=== PATIENT | female | born 1960 | race Hispanic/Latino ===

== ENCOUNTER 2018-11-21 20:28 | Observation (INO) | payer MEDICARE, MEDICAID ==
[2018-11-21 20:28] VITALS: BMI 29.2
--- NOTE | 2018-11-21 21:00 | C.PDOC ---
History Of Present Illness 58 year old female presents to the ER with chest pain intermittently since this morning. Patient states the pain is sharp and increases with deep inspiration. She was seen by Dr. Bray today in the office. Denies sweatiness or ligh theadedness. Chief Complaint (Nursing): Chest Pain History Per: Patient History/Exam Limitations: no limitations Onset/Duration Of Symptoms: Hrs, Intermittent Episodes Current Symptoms Are (Timing): Still Present Modifying Factors: None Exacerbating Factors: None Alleviating Factors: None Recent travel outside of the [place]: No Past Medical History Reviewed: Historical Data, Nursing Documentation, Vital Signs - Medical History PMH: Anxiety, Back Problems, COPD, Depression, Gastrointestinal Ulcer, Gall Bladder Disease, HTN, Hypothyroidism Denies: Diabetes, Hepatitis, HIV, Chronic Kidney Disease, Seizures, Sexually Transmitted Disease Surgical History: Tonsillectomy - [facility] MEDICATION MANAGEMENT (10/25/18) Family History: States: No Known Family Hx - Social History Hx Alcohol Use: No Hx Substance Use: No - Immunization History Hx Tetanus Toxoid Vaccination: No Hx Influenza Vaccination: No Hx Pneumococcal Vaccination: No Review Of Systems Constitutional: Negative for: Fever, Chills Cardiovascular: Positive for: Chest Pain Respiratory: Negative for: Cough, Shortness of Breath Gastrointestinal: Negative for: Nausea, Vomiting Neurological: Negative for: Weakness, Numbness Physical Exam - Physical Exam Appears: Non-toxic Skin: Normal Color, Warm Head: Atraumatic, Normacephalic Eye(s): bilateral: Normal Inspection Oral Mucosa: Moist Chest: Symmetrical, No Tenderness Cardiovascular: Rhythm Regular Respiratory: Normal Breath Sounds, No Rales, No Rhonchi, No Wheezing Gastrointestinal/Abdominal: Soft, No Tenderness Neurological/Psych: Oriented x3, Normal Speech ED Course And Treatment - Laboratory Results Result Diagrams: 11/21/18 21:35 11/21/18 21:35 ECG: Interpreted By Me, Viewed By Me ECG Rhythm: Sinus Rhythm ECG Interpretation: No Acute Changes, Abnormal Interpretation Of ECG: NSR, poor R wave progression V! to V2., no acute changes, abnormal tracings. Rate From EC - Radiology CXR: Interpreted by Me, Viewed By Me CXR Interpretation: Yes: No Acute Disease, Other (NORMAL CHEST FILM). No: Infiltrates Progress Note: EKG, blood work, and CXR ordered. IV fluids, toradol, and aspirin administered. Disposition Discussed With DrRadha: Jos Bray (Dr. Mirna Sheridan called and notified.) Comment: Refer to hospitalist for admission Doctor Will See Patient In The: Hospital Counseled Patient/Family Regarding: Studies Performed - Disposition Disposition: HOSPITALIZED Disposition Time: 22:58 Condition: STABLE Forms: [facility] (Sinhala) - POA Present On Arrival: None - Clinical Impression Clinical Impression: Chest pain - Scribe Statement The provider has reviewed the documentation as recorded by the Scribe Adriel Mcfadden All medical record entries made by the Vonnieibtiffanie were at my direction and personally dictated by me. I have reviewed the chart and agree that the record accurately reflects my personal performance of the history, physical exam, medical decision making, and the department course for this patient. I have also personally directed, reviewed, and agree with the discharge instructions and disposition.
[2018-11-21] MEDS ORDERED: Sodium Chloride 0.9% 1,000 ML IV ONE (21:02)
[2018-11-21] MEDS ORDERED: Sodium Chloride 0.9% 1,000 ML ONE (21:31)
[2018-11-21 21:39] LABS: BASO # 0.1 K/uL (0.0-0.2); EOS # 0.3 K/uL (0.0-0.7); HEMOGLOBIN 12.8 g/dL (11.0-16.0); LYMPH # 2.8 K/uL (1.0-4.3); LYMPH % 41.3 % (20.0-40.0); MEAN CELL VOLUME 89.6 fL (81.0-99.0); MEAN CORPUSCULAR HGB CONC 33.4 g/dL (33.0-37.0); MEAN PLATELET VOLUME 8.2 fL (7.2-11.7); MONO # 0.5 K/uL (0.0-0.8); MONO % 8.1 % (0.0-10.0); NEUT % 44.6 % (50.0-75.0); RBC 4.27 Mil/uL (3.80-5.20); RED CELL DISTRIBUTION WIDTH 15.1 % (11.5-14.5); WHITE BLOOD COUNT 6.7 K/uL (4.8-10.8)
[2018-11-21 21:59] LABS: ALB/GLOB RATIO 1.3 (1.0-2.1); ALBUMIN 3.9 g/dL (3.5-5.0); ALT/SGPT 9 U/L (9-52); AST/SGOT 11 U/L (14-36); BLOOD UREA NITROGEN 16 mg/dL (7-17); CALCIUM 9.5 mg/dl (8.6-10.4); GFR NON-AFRICAN AMERICAN 51; PROTHROMBIN TIME 10.7 SECONDS (9.7-12.2)
[2018-11-21 22:01] LABS: D DIMER < 200 ng/mlDDU (0-243)
[2018-11-21 23:07] VITALS: RESP 20
--- NOTE | 2018-11-22 00:49 | CP.PCM.HP ---
History of Present Illness - History of Present Illness History of Present Illness: PGY2 Medicine H+P for Dr. Shell Sheridan Patient is a 58 year old female with a past medical history of COPD, CVA (1999 and 2000 - L and R sided CVA's - residual weakness b/l), GA (2013 - denies stents), GERD, chronic back pain, anxiety and depression (recent psych hospitalization x3 in 2019 @[facility]) presented to the emergency with a complaint of epigastric pain that radiates up to her chest x 2 days. The pain is sharp in nature and radiates upwards towards the middle of her chest. This pain is different than her normal GERD pain and feels more similar to when she had an GA 5 years ago. She has not taken anything for the pain, but she decided to go to her PMD, Dr. Bray, office earlier today. The pain was intermittent to start but has become constant throughout the day, which caused her to come to the emergency room today. She is eating well but has been having difficulty drinking because of the pain, "I'm just not thirsty." Denies fevers, chills, nausea, vomiting, diarrhea, constipation, SOB, lightheadedness, dizziness or palpations. PMD: Dr. Bray PMH: COPD, CVA (1999 and 2000 - L and R sided CVA's - residual weakness b/l), GA (2013 - denies stents), GERD, chronic back pain, anxiety and depression (recent psych hospitalization x3 in 2019 @[facility]) PSH: Tonsillectomy, Cardiac cath (2013 - denies stents) Family Hx: Father at 82 of GA, Mother alive - COPD Social Hx: current tobacco smoker (1-2 cigs per day, 30 years off and on smoker, previous pack per day user), denies alcohol or illicit drug use Allergies: Chocolate flavor, peanuts Medications: Not positive of current medications/dosages, uses pharmacy next to Dr. Bray's office on [facility] * knows she is on: * Plavix * Atorvastatin * Metoprolol * Effexor 225mg * Ativan 1mg prn * additional medications from d/c note @[facility] - patient reports meds have not changed since last hospitalization, has not taken any today. * Acetaminophen/Butalbital/Caf [Fioricet] 1 tab PO Q4H PRN #21 tab - PRN Reason: Headache * ARIPiprazole [Abilify] 5 mg PO BID #30 tab * Aspirin [Aspirin Chewable] 81 mg PO DAILY #7 chew * Atorvastatin [Lipitor] 10 mg PO DIN #7 tab * Divalproex [Depakote DR(*BID*)] 500 mg PO BID #30 tcp --> patient states she has never taken * Docusate [Colace] 100 mg PO BID #14 cap * hydrOXYzine Pamoate [Vistaril] 50 mg PO DAILY PRN #14 cap - PRN Reason: Anxiety * LORazepam [Ativan] 1 mg PO BID PRN #30 tab - PRN Reason: Anxiety * Metoprolol Succinate XL [Toprol XL] 25 mg PO BRK #7 tab * Pantoprazole [Protonix EC Tab] 40 mg PO 0600,1600 #14 ect * Pregabalin [Lyrica] 50 mg PO BID #14 cap * Venlafaxine [Effexor XR] 225 mg PO DAILY #45 cer * Zolpidem [Ambien] 5 mg PO HS PRN #14 tab - PRN Reason: Insomnia Present on Admission - Present on Admission Any Indicators Present on Admission: No Review of Systems - Review of Systems All systems: reviewed and no additional remarkable complaints except (HPI) Past Patient History - Infectious Disease Hx of Infectious Diseases: None - Past Social History Smoking Status: Heavy Smoker > 10 Cigarettes Daily - CARDIAC Hx Hypertension: Yes - PULMONARY Hx Chronic Obstructive Pulmonary Disease (COPD): Yes - NEUROLOGICAL Hx Seizures: No - HEENT Hx HEENT Problems: No - RENAL Hx Chronic Kidney Disease: No - ENDOCRINE/METABOLIC Hx Hypothyroidism: Yes - HEMATOLOGICAL/ONCOLOGICAL Hx Human Immunodeficiency Virus (HIV): No - INTEGUMENTARY Hx Dermatological Problems: Yes Other/Comment: contact dermatitis - MUSCULOSKELETAL/RHEUMATOLOGICAL Hx Musculoskeletal Disorders: No - GASTROINTESTINAL Hx Gall Bladder Disease: Yes - GENITOURINARY/GYNECOLOGICAL Hx Sexually Transmitted Disorders: No - PSYCHIATRIC Hx Anxiety: Yes Hx Depression: Yes Hx Substance Use: No - SURGICAL HISTORY Hx Tonsillectomy: Yes - ANESTHESIA Hx Anesthesia: Yes Hx Anesthesia Reactions: No Hx Malignant Hyperthermia: No Meds Allergies/Adverse Reactions: Allergies Allergy/AdvReac Type Severity Reaction Status Date / Time chocolate flavor Allergy RASH Verified 05/08/19 20:50 peanut Allergy ANGIOEDEMA Verified 11/21/18 20:50 Physical Exam - Constitutional Appears: Non-toxic, No Acute Distress - Head Exam Head Exam: ATRAUMATIC, NORMOCEPHALIC - Eye Exam Eye Exam: EOMI, Normal appearance, PERRL - ENT Exam ENT Exam: Mucous Membranes Moist - Neck Exam Neck exam: Positive for: Full Rom, Normal Inspection. Negative for: Lymphadenopathy, Tenderness - Respiratory Exam Respiratory Exam: Decreased Breath Sounds (poor air movement), NORMAL BREATHING PATTERN. absent: Accessory Muscle Use, Rales, Rhonchi, Wheezes, Respiratory Dis tress - Cardiovascular Exam Cardiovascular Exam: REGULAR RHYTHM, +S1, +S2 - GI/Abdominal Exam GI & Abdominal Exam: Soft, Tenderness (epigastric tender to palpation). absent: Distended, Firm, Guarding, Rigid - Extremities Exam Extremities exam: Positive for: normal inspection, pedal pulses present. Negative for: calf tenderness, pedal edema - Neurological Exam Neurological exam: Alert, CN II-XII Intact, Oriented x3 - Psychiatric Exam Psychiatric exam: Normal Affect, Normal Mood - Skin Skin Exam: Dry, Warm Results - Vital Signs Recent Vital Signs: Last Vital Signs Temp 98.1 F 11/21/18 23:06 Pulse 83 11/21/18 23:06 Resp 20 11/21/18 23:06 BP 122/79 11/21/18 23:06 Pulse Ox 95 11/21/18 23:06 - Labs Result Diagrams: 11/21/18 21:35 11/21/18 21:35 Labs: Laboratory Results - last 24 hr 11/21/18 11/21/18 11/21/18 21:35 21:35 21:35 WBC 6.7 RBC 4.27 Hgb 12.8 Hct 38.2 MCV 89.6 MCH 30.0 MCHC 33.4 RDW 15.1 H Plt Count 262 MPV 8.2 Neut % (Auto) 44.6 L Lymph % (Auto) 41.3 H [place] % (Auto) 8.1 Eos % (Auto) 5.0 H Baso % (Auto) 1.0 Neut # (Auto) 3.0 Lymph # (Auto) 2.8 [place] # (Auto) 0.5 Eos # (Auto) 0.3 Baso # (Auto) 0.1 PT 10.7 INR 1.0 APTT 33.0 D-Dimer, Quantitative < 200 Sodium 140 Potassium 3.7 Chloride 104 Carbon Dioxide 27 Anion Gap 12 BUN 16 Creatinine 1.1 Est GFR ( Amer) > 60 Est GFR (Non-Af Amer) 51 Random Glucose 107 H Calcium 9.5 Total Bilirubin 0.2 AST 11 L D ALT 9 Alkaline Phosphatase 62 Troponin I < 0.0120 Total Protein 6.9 Albumin 3.9 Globulin 3.0 Albumin/Globulin Ratio 1.3 Assessment & Plan - Assessment and Plan (Free Text) Assessment: Patient is a 58 year old female with a past medical history of COPD, CVA (1999 and 2000 - L and R sided CVA's - residual weakness b/l), GA (2013 - denies stents), GERD, chronic back pain, anxiety and depression (recent psych hospitalization x3 in 2019 @[facility]) presented to the emergency with a complaint of epigastric pain that radiates up to her chest x 2 days. She was admitted for chest pain observation, r/o ACS. Plan: Chest Pain r/o ACS Epigastric pain hx of GA (2013) hx of CVA (1999, 2000) hx of GERD Cardiology consulted, Dr. Bray (pt's PMD) CXR - unremarkable EKG - NSR @91 bpm, normal axis, no acute ST segment elevations/depressions * f/u repeat EKG q6h with trop Troponin I - neg x1, pending x2 q6h Lipid panel pending TSH/free T4 pending Hgb A1c pending Medications: * Aspirin 81mg PO daily (Home) * Plavix 75mg PO daily (Home) * Metoprolol Succ 25mg PO daily (Home) * Rosuvastatin 5mg PO DIN (Home - Atorvastatin 10mg PO DIN) * Protonix 40mg PO 0600, 1600 (Home) * Nitroglycerin 0.4mg SL q5h prn for chest pain Anxiety Depression Valproic Acid level pending - per d/c paperwork, patient is supposed to be on Depakote 500mg BID for mood stablization and migraines, but patient states she does not believe she is on medication. Continue Home Medications: * Effexor 225mg PO daily * Ativan 1mg PO BID prn (anxiety) COPD Patient knows she is on a daily inhaler but does not remember the name of the medication. Will call Dr. Brya's office in the morning to confirm medications. Counseled on smoking cessation Medication: * Duoneb 3mL INH q4h prn Prophylactic Care DVT: Heparin 5,000 SC q8h and SCDs GI: continue home Protonix 40mg PO 0600, 1600 Heart Healthy Decaf, mod carb consistent diet Case discussed with Dr. Fatimah Curtis Idalmis PGY2
[2018-11-22] MEDS ORDERED: Albuterol-Ipratrop 3 mg / 0.5 (3 ml) UD INH PRN (00:57)
[2018-11-22 04:40] LABS: BASO # 0.1 K/uL (0.0-0.2); BASO % 0.9 % (0.0-2.0); EOS # 0.4 K/uL (0.0-0.7); HEMOGLOBIN 11.9 g/dL (11.0-16.0); LYMPH # 2.7 K/uL (1.0-4.3); LYMPH % 46.5 % (20.0-40.0); MEAN CELL VOLUME 90.4 fL (81.0-99.0); MEAN CORPUSCULAR HEMOGLOBIN 29.6 pg (27.0-31.0); MEAN CORPUSCULAR HGB CONC 32.7 g/dL (33.0-37.0); MEAN PLATELET VOLUME 8.6 fL (7.2-11.7); MONO # 0.6 K/uL (0.0-0.8); NEUT # 2.2 K/uL (1.8-7.0); NEUT % 36.6 % (50.0-75.0); NRBC % 0.1 % (0.0-2.0); RBC 4.01 Mil/uL (3.80-5.20); RED CELL DISTRIBUTION WIDTH 15.2 % (11.5-14.5); WHITE BLOOD COUNT 5.9 K/uL (4.8-10.8)
[2018-11-22 05:03] LABS: LDL CHOLESTEROL 93 mg/dL (0-129)
[2018-11-22 05:26] LABS: ALB/GLOB RATIO 1.2 (1.0-2.1); ALBUMIN 3.3 g/dL (3.5-5.0); ALT/SGPT 12 U/L (9-52); AST/SGOT 17 U/L (14-36); BLOOD UREA NITROGEN 21 mg/dL (7-17); CALCIUM 8.6 mg/dl (8.6-10.4); CK-MB < 0.22 ng/mL (0.0-3.38); GFR NON-AFRICAN AMERICAN 57; HDL CHOLESTEROL 52 mg/dL (30-70)
[2018-11-22] MEDS ORDERED: Pantoprazole 40 mg EC Tab PO SCH (06:00)
--- NOTE | 2018-11-22 07:44 | RAD ---
Date of service: 11/21/2018 HISTORY: chest pain COMPARISON: No prior. TECHNIQUE: Chest PA and lateral views FINDINGS: LUNGS: No active pulmonary disease. PLEURA: No significant pleural effusion identified. No pneumothorax apparent. CARDIOVASCULAR: No aortic atherosclerotic calcification present. Normal cardiac size. No pulmonary vascular congestion. OSSEOUS STRUCTURES: No significant abnormalities. VISUALIZED UPPER ABDOMEN: Normal. OTHER FINDINGS: None. IMPRESSION: No active disease.
[2018-11-22] MEDS ORDERED: Metoprolol Succinate 25 mg XL Tab PO SCH (08:00)
[2018-11-22 08:45] VITALS: BP 134/91; TEMP 98.4; O2SAT 98
[2018-11-22] MEDS ORDERED: Venlafaxine 75 mg ER Cap PO SCH (10:00)
--- NOTE | 2018-11-22 11:43 | CP.PCM.DIS ---
<Michael Salinas - Last Filed: 11/22/18 11:52> Provider - Provider Date of Admission: 11/21/18 22:59 Attending physician: Speedy Sheridan MD Consults: 11/22/18 00:28 Cardiology Consult Routine Comment: Consulting Provider: Jos Bray Consulting Physician: Jos Bray Reason for Consult: Chest Pain Time Spent in preparation of Discharge (in minutes): 45 Diagnosis - Discharge Diagnosis (1) Chest pain Status: Suspected (2) Anxiety Status: Chronic Priority: High (3) Depression Status: Chronic Priority: High Hospital Course - Lab Results Lab Results: Most Recent Lab Values WBC 5.9 K/uL (4.8-10.8) 11/22/18 04:28 RBC 4.01 Mil/uL (3.80-5.20) 11/22/18 04:28 Hgb 11.9 g/dL (11.0-16.0) 11/22/18 04:28 Hct 36.3 % (34.0-47.0) 11/22/18 04:28 MCV 90.4 fL (81.0-99.0) 11/22/18 04:28 MCH 29.6 pg (27.0-31.0) 11/22/18 04:28 MCHC 32.7 g/dL (33.0-37.0) L 11/22/18 04:28 RDW 15.2 % (11.5-14.5) H 11/22/18 04:28 Plt Count 246 K/uL (130-400) 11/22/18 04:28 MPV 8.6 fL (7.2-11.7) 11/22/18 04:28 Neut % (Auto) 36.6 % (50.0-75.0) L 11/22/18 04:28 Lymph % (Auto) 46.5 % (20.0-40.0) H 11/22/18 04:28 [place] % (Auto) 10.0 % (0.0-10.0) 11/22/18 04:28 Eos % (Auto) 6.0 % (0.0-4.0) H 11/22/18 04:28 Baso % (Auto) 0.9 % (0.0-2.0) 11/22/18 04:28 Neut # (Auto) 2.2 K/uL (1.8-7.0) 11/22/18 04:28 Lymph # (Auto) 2.7 K/uL (1.0-4.3) 11/22/18 04:28 [place] # (Auto) 0.6 K/uL (0.0-0.8) 11/22/18 04:28 Eos # (Auto) 0.4 K/uL (0.0-0.7) 11/22/18 04:28 Baso # (Auto) 0.1 K/uL (0.0-0.2) 11/22/18 04:28 PT 10.7 SECONDS (9.7-12.2) 11/21/18 21:35 INR 1.0 11/21/18 21:35 APTT 33.0 SECONDS (21-34) 11/21/18 21:35 D-Dimer, Quantitative < 200 ng/mlDDU (0-243) 11/21/18 21:35 Sodium 141 mmol/L (132-148) 11/22/18 04:28 Potassium 3.8 mmol/L (3.6-5.2) 11/22/18 04:28 Chloride 107 mmol/L (98-107) 11/22/18 04:28 Carbon Dioxide 26 mmol/L (22-30) 11/22/18 04:28 Anion Gap 12 (10-20) 11/22/18 04:28 BUN 21 mg/dL (7-17) H 11/22/18 04:28 Creatinine 1.0 mg/dL (0.7-1.2) 11/22/18 04:28 Est GFR ( Amer) > 60 11/22/18 04:28 Est GFR (Non-Af Amer) 57 11/22/18 04:28 Random Glucose 92 mg/dL (65-105) 11/22/18 04:28 Hemoglobin A1c 5.4 % (4.2-6.5) 11/22/18 04:28 Calcium 8.6 mg/dl (8.6-10.4) 11/22/18 04:28 Total Bilirubin 0.2 mg/dL (0.2-1.3) 11/22/18 04:28 AST 17 U/L (14-36) 11/22/18 04:28 ALT 12 U/L (9-52) 11/22/18 04:28 Alkaline Phosphatase 46 U/L (38-126) 11/22/18 04:28 Total Creatine Kinase < 20 U/L (30-135) L 11/22/18 04:28 CK-MB (Mass) < 0.22 ng/mL (0.0-3.38) 11/22/18 04:28 Troponin I < 0.0120 ng/mL (0.00-0.120) 11/22/18 04:28 Total Protein 6.1 g/dL (6.3-8.3) L 11/22/18 04:28 Albumin 3.3 g/dL (3.5-5.0) L 11/22/18 04:28 Globulin 2.8 gm/dL (2.2-3.9) 11/22/18 04:28 Albumin/Globulin Ratio 1.2 (1.0-2.1) 11/22/18 04:28 Triglycerides 77 mg/dL (0-149) 11/22/18 04:28 Cholesterol 166 mg/dL (0-199) 11/22/18 04:28 LDL Cholesterol Direct 93 mg/dL (0-129) 11/22/18 04:28 HDL Cholesterol 52 mg/dL (30-70) 11/22/18 04:28 Free T4 1.19 ng/dL (0.78-2.19) 11/22/18 04:28 TSH 3rd Generation 2.09 mIU/L (0.46-4.68) 11/22/18 04:28 Valproic Acid < 10.0 ug/mL (50.0-100.0) L 11/22/18 04:28 - Hospital Course Hospital Course: Patient is a 58 year old female with a past medical history of COPD, CVA (1999 and 2000 - L and R sided CVA's - residual weakness b/l), SD (2013 - denies stents), GERD, chronic back pain, anxiety and depression (recent psych hospitalization x3 in 2019 @[facility]) presented to the emergency with a complaint of epigastric pain that radiates up to her chest x 2 days. The pain is sharp in nature and radiates upwards towards the middle of her chest. This pain is different than her normal GERD pain and feels more similar to when she had an SD 5 years ago. She has not taken anything for the pain, but she decided to go to her PMD, Dr. Bray, office earlier today. The pain was intermittent to start but has become constant throughout the day, which caused her to come to the emergency room today. She is eating well but has been having difficulty drinking because of the pain, "I'm just not thirsty." Denies fevers, chills, nausea, vomiting, diarrhea, constipation, SOB, lightheadedness, dizziness or palpations. PMD: Dr. Bray PMH: COPD, CVA (1999 and 2000 - L and R sided CVA's - residual weakness b/l), SD (2013 - denies stents), GERD, chronic back pain, anxiety and depression (recent psych hospitalization x3 in 2019 @[facility]) PSH: Tonsillectomy, Cardiac cath (2013 - denies stents) Family Hx: Father at 82 of SD, Mother alive - COPD Social Hx: current tobacco smoker (1-2 cigs per day, 30 years off and on smoker, previous pack per day user), denies alcohol or illicit drug use Allergies: Chocolate flavor, peanuts Medications: Not positive of current medications/dosages, uses pharmacy next to Dr. Bray's office on [address] in [place] * knows she is on: * Plavix * Atorvastatin * Metoprolol * Effexor 225mg * Ativan 1mg prn * additional medications [place] [place] patient reports meds have not changed since last hospitalization, has not taken any today. * Acetaminophen/Butalbital/Caf [Fioricet] 1 tab PO Q4H PRN #21 tab - PRN Reason: Headache * ARIPiprazole [Abilify] 5 mg PO BID #30 tab * Aspirin [Aspirin Chewable] 81 mg PO DAILY #7 chew * Atorvastatin [Lipitor] 10 mg PO DIN #7 tab * Divalproex [Depakote DR(*BID*)] 500 mg PO BID #30 tcp --> patient states she has never taken * Docusate [Colace] 100 mg PO BID #14 cap * hydrOXYzine Pamoate [Vistaril] 50 mg PO DAILY PRN #14 cap - PRN Reason: Anxiety * LORazepam [Ativan] 1 mg PO BID PRN #30 tab - PRN Reason: Anxiety * Metoprolol Succinate XL [Toprol XL] 25 mg PO BRK #7 tab * Pantoprazole [Protonix EC Tab] 40 mg PO 0600,1600 #14 ect * Pregabalin [Lyrica] 50 mg PO BID #14 cap * Venlafaxine [Effexor XR] 225 mg PO DAILY #45 cer * Zolpidem [Ambien] 5 mg PO HS PRN #14 tab - PRN Reason: Insomnia Davidson neg, called Dr Bray, Pt is to follow up outpt. Pain in L chest is repr oducible Discharge Exam - Head Exam Head Exam: ATRAUMATIC, NORMOCEPHALIC - Additional Findings Additional findings: - Constitutional Appears: Non-toxic, No Acute Distress - Head Exam Head Exam: ATRAUMATIC, NORMOCEPHALIC - Eye Exam Eye Exam: EOMI, Normal appearance, PERRL - ENT Exam ENT Exam: Mucous Membranes Moist - Neck Exam Neck exam: Positive for: Full Rom, Normal Inspection. Negative for: Lymphadenopathy, Tenderness - Respiratory Exam Respiratory Exam: Decreased Breath Sounds (poor air movement), NORMAL BREATHING PATTERN. absent: Accessory Muscle Use, Rales, Rhonchi, Wheezes, Respiratory Distress - Cardiovascular Exam Cardiovascular Exam: REGULAR RHYTHM, +S1, +S2 - GI/Abdominal Exam GI & Abdominal Exam: Soft, Tenderness (epigastric tender to palpation). absent: Distended, Firm, Guarding, Rigid - Extremities Exam Extremities exam: Positive for: normal inspection, pedal pulses present. Negative for: calf tenderness, pedal edema - Neurological Exam Neurological exam: Alert, CN II-XII Intact, Oriented x3 - Psychiatric Exam Psychiatric exam: Normal Affect, Normal Mood - Skin Skin Exam: Dry, Warm Discharge Plan - Discharge Medications Prescriptions: ARIPiprazole [Abilify] 5 mg PO BID #30 tab Aspirin [Aspirin Chewable] 81 mg PO DAILY #7 chew Atorvastatin [Lipitor] 10 mg PO DIN #7 tab Docusate [Colace] 100 mg PO BID #14 cap Metoprolol Succinate XL [Toprol XL] 25 mg PO BRK #7 tab Pantoprazole [Protonix EC Tab] 40 mg PO 0600,1600 #14 ect Pregabalin [Lyrica] 50 mg PO BID #14 cap Venlafaxine [Effexor XR] 225 mg PO DAILY #45 cer - Follow Up Plan Condition: STABLE Disposition: HOME/ ROUTINE Instructions: Heart Healthy Diet, Chest Pain (DC), Pregabalin, Aripiprazole, Atorvastatin, Docusate, Pantoprazole, Venlafaxine Additional Instructions: Pt is to be discharged home with the following medications ARIPiprazole [Abilify] 5 mg PO BID #30 tab Aspirin [Aspirin Chewable] 81 mg PO DAILY #7 chew Atorvastatin [Lipitor] 10 mg PO DIN #7 tab Docusate [Colace] 100 mg PO BID #14 cap Metoprolol Succinate XL [Toprol XL] 25 mg PO daily #7 tab Pantoprazole [Protonix EC Tab] 40 mg PO 0600,1600 #14 ect Pregabalin [Lyrica] 50 mg PO BID #14 cap Venlafaxine [Effexor XR] 225 mg PO DAILY #45 cer Patient may continue all home medications as prescribed by PMD Please follow up with Dr Bray within 7 days of discharge take care and be well CK PGY1 Referrals: Jos Bray MD [Staff Provider] - <Cee Del Angel - Last Filed: 11/22/18 12:58> Provider - Provider Date of Admission: 11/21/18 22:59 Attending physician: Speedy Sheridan MD Consults: 11/22/18 00:28 Cardiology Consult Routine Comment: Consulting Provider: Jso Bray Consulting Physician: Jos Bray Reason for Consult: Chest Pain Hospital Course - Lab Results Lab Results: Most Recent Lab Values WBC 5.9 K/uL (4.8-10.8) 11/22/18 04:28 RBC 4.01 Mil/uL (3.80-5.20) 11/22/18 04:28 Hgb 11.9 g/dL (11.0-16.0) 11/22/18 04:28 Hct 36.3 % (34.0-47.0) 11/22/18 04:28 MCV 90.4 fL (81.0-99.0) 11/22/18 04:28 MCH 29.6 pg (27.0-31.0) 11/22/18 04:28 MCHC 32.7 g/dL (33.0-37.0) L 11/22/18 04:28 RDW 15.2 % (11.5-14.5) H 11/22/18 04:28 Plt Count 246 K/uL (130-400) 11/22/18 04:28 MPV 8.6 fL (7.2-11.7) 11/22/18 04:28 Neut % (Auto) 36.6 % (50.0-75.0) L 11/22/18 04:28 Lymph % (Auto) 46.5 % (20.0-40.0) H 11/22/18 04:28 [place] % (Auto) 10.0 % (0.0-10.0) 11/22/18 04:28 Eos % (Auto) 6.0 % (0.0-4.0) H 11/22/18 04:28 Baso % (Auto) 0.9 % (0.0-2.0) 11/22/18 04:28 Neut # (Auto) 2.2 K/uL (1.8-7.0) 11/22/18 04:28 Lymph # (Auto) 2.7 K/uL (1.0-4.3) 11/22/18 04:28 [place] # (Auto) 0.6 K/uL (0.0-0.8) 11/22/18 04:28 Eos # (Auto) 0.4 K/uL (0.0-0.7) 11/22/18 04:28 Baso # (Auto) 0.1 K/uL (0.0-0.2) 11/22/18 04:28 PT 10.7 SECONDS (9.7-12.2) 11/21/18 21:35 INR 1.0 11/21/18 21:35 APTT 33.0 SECONDS (21-34) 11/21/18 21:35 D-Dimer, Quantitative < 200 ng/mlDDU (0-243) 11/21/18 21:35 Sodium 141 mmol/L (132-148) 11/22/18 04:28 Potassium 3.8 mmol/L (3.6-5.2) 11/22/18 04:28 Chloride 107 mmol/L (98-107) 11/22/18 04:28 Carbon Dioxide 26 mmol/L (22-30) 11/22/18 04:28 Anion Gap 12 (10-20) 11/22/18 04:28 BUN 21 mg/dL (7-17) H 11/22/18 04:28 Creatinine 1.0 mg/dL (0.7-1.2) 11/22/18 04:28 Est GFR ( Amer) > 60 11/22/18 04:28 Est GFR (Non-Af Amer) 57 11/22/18 04:28 Random Glucose 92 mg/dL (65-105) 11/22/18 04:28 Hemoglobin A1c 5.4 % (4.2-6.5) 11/22/18 04:28 Calcium 8.6 mg/dl (8.6-10.4) 11/22/18 04:28 Total Bilirubin 0.2 mg/dL (0.2-1.3) 11/22/18 04:28 AST 17 U/L (14-36) 11/22/18 04:28 ALT 12 U/L (9-52) 11/22/18 04:28 Alkaline Phosphatase 46 U/L (38-126) 11/22/18 04:28 Total Creatine Kinase < 20 U/L (30-135) L 11/22/18 11:14 CK-MB (Mass) < 0.22 ng/mL (0.0-3.38) 11/22/18 11:14 Troponin I < 0.0120 ng/mL (0.00-0.120) 11/22/18 11:14 Total Protein 6.1 g/dL (6.3-8.3) L 11/22/18 04:28 Albumin 3.3 g/dL (3.5-5.0) L 11/22/18 04:28 Globulin 2.8 gm/dL (2.2-3.9) 11/22/18 04:28 Albumin/Globulin Ratio 1.2 (1.0-2.1) 11/22/18 04:28 Triglycerides 77 mg/dL (0-149) 11/22/18 04:28 Cholesterol 166 mg/dL (0-199) 11/22/18 04:28 LDL Cholesterol Direct 93 mg/dL (0-129) 11/22/18 04:28 HDL Cholesterol 52 mg/dL (30-70) 11/22/18 04:28 Free T4 1.19 ng/dL (0.78-2.19) 11/22/18 04:28 TSH 3rd Generation 2.09 mIU/L (0.46-4.68) 11/22/18 04:28 Valproic Acid < 10.0 ug/mL (50.0-100.0) L 11/22/18 04:28 Attending/Attestation - Attestation I have personally seen and examined this patient.: Yes I have fully participated in the care of the patient.: Yes I have reviewed all pertinent clinical information, including history, physical exam and plan: Yes Notes (Text): seen and examined. Her pain is atypical. 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 d/c home and follow outpt
[2018-11-22] MEDS ORDERED: Pneumococcal 23-Valent Vaccine IM ONE (12:03)
[2018-11-22 12:10] VITALS: PULSE 96
[2018-11-22 12:53] LABS: CK-MB < 0.22 ng/mL (0.0-3.38)
--- NOTE | 2018-11-22 16:44 | CARD ---
APPROVED REPORT Date of service: 11/22/2018 EKG Measurement Heart [id number] <Conclusion> Normal sinus rhythm Septal infarct, age undetermined Abnormal ECG
--- NOTE | 2018-11-22 16:53 | CARD ---
APPROVED REPORT Date of service: 11/22/2018 EKG Measurement Heart [id number] <Conclusion> Normal sinus rhythm Normal ECG
--- NOTE | 2018-11-22 20:08 | CP.PCM.CON ---
History of Present Illness - History of Present Illness History of Present Illness: 58 years old lady That was evaluated in the office today for atypical chest pain. Chest pain was with Tenderness, no EKG changes, negative enzymes. Unlikely PE or dissection. For the [place] will be done as outpatient. Review of Systems - Constitutional Constitutional: Anorexia, Weakness Past Patient History - Infectious Disease Hx of Infectious Diseases: None - Past Social History Smoking Status: Heavy Smoker > 10 Cigarettes Daily - CARDIAC Hx Hypertension: Yes - PULMONARY Hx Chronic Obstructive Pulmonary Disease (COPD): Yes - NEUROLOGICAL Hx Seizures: No - HEENT Hx HEENT Problems: No - RENAL Hx Chronic Kidney Disease: No - ENDOCRINE/METABOLIC Hx Hypothyroidism: Yes - HEMATOLOGICAL/ONCOLOGICAL Hx Human Immunodeficiency Virus (HIV): No - INTEGUMENTARY Hx Dermatological Problems: Yes Other/Comment: contact dermatitis - MUSCULOSKELETAL/RHEUMATOLOGICAL Hx Musculoskeletal Disorders: No - GASTROINTESTINAL Hx Gall Bladder Disease: Yes - GENITOURINARY/GYNECOLOGICAL Hx Sexually Transmitted Disorders: No - PSYCHIATRIC Hx Anxiety: Yes Hx Depression: Yes Hx Substance Use: No - SURGICAL HISTORY Hx Tonsillectomy: Yes - ANESTHESIA Hx Anesthesia: Yes Hx Anesthesia Reactions: No Hx Malignant Hyperthermia: No Meds Home Medications: Home Medication List Medication Instructions Recorded Confirmed Type ARIPiprazole [Abilify] 5 mg PO BID #30 tab 11/22/18 Rx Aspirin [Aspirin Chewable] 81 mg PO DAILY #7 chew 11/22/18 Rx Atorvastatin [Lipitor] 10 mg PO DIN #7 tab 11/22/18 Rx Docusate [Colace] 100 mg PO BID #14 cap 11/22/18 Rx Metoprolol Succinate XL [Toprol XL] 25 mg PO BRK #7 tab 11/22/18 Rx Pantoprazole [Protonix EC Tab] 40 mg PO 0600,1600 #14 ect 11/22/18 Rx Pregabalin [Lyrica] 50 mg PO BID #14 cap 11/22/18 Rx Venlafaxine [Effexor XR] 225 mg PO DAILY #45 cer 11/22/18 Rx Allergies/Adverse Reactions: Allergies Allergy/AdvReac Type Severity Reaction Status Date / Time chocolate flavor Allergy RASH Verified 11/21/18 20:50 peanut Allergy ANGIOEDEMA Verified 11/21/18 20:50 Results - Vital Signs Recent Vital Signs: Last Vital Signs Temp 98.4 F 11/22/18 08:43 Pulse 96 H 11/22/18 12:04 Resp 20 11/22/18 08:43 BP 134/91 H 11/22/18 08:43 Pulse Ox 98 11/22/18 08:43 - Labs Result Diagrams: 11/22/18 04:28 11/22/18 04:28 Labs: Laboratory Results - last 24 hr 11/21/18 11/21/18 11/21/18 21:35 21:35 21:35 WBC 6.7 RBC 4.27 Hgb 12.8 Hct 38.2 MCV 89.6 MCH 30.0 MCHC 33.4 RDW 15.1 H Plt Count 262 MPV 8.2 Neut % (Auto) 44.6 L Lymph % (Auto) 41.3 H Pacific % (Auto) 8.1 Eos % (Auto) 5.0 H Baso % (Auto) 1.0 Neut # (Auto) 3.0 Lymph # (Auto) 2.8 Pacific # (Auto) 0.5 Eos # (Auto) 0.3 Baso # (Auto) 0.1 PT 10.7 INR 1.0 APTT 33.0 D-Dimer, Quantitative < 200 Sodium 140 Potassium 3.7 Chloride 104 Carbon Dioxide 27 Anion Gap 12 BUN 16 Creatinine 1.1 Est GFR ( Amer) > 60 Est GFR (Non-Af Amer) 51 Random Glucose 107 H Hemoglobin A1c Calcium 9.5 Total Bilirubin 0.2 AST 11 L D ALT 9 Alkaline Phosphatase 62 Total Creatine Kinase CK-MB (Mass) Troponin I < 0.0120 Total Protein 6.9 Albumin 3.9 Globulin 3.0 Albumin/Globulin Ratio 1.3 Triglycerides Cholesterol LDL Cholesterol Direct HDL Cholesterol Free T4 TSH 3rd Generation Valproic Acid 11/22/18 11/22/18 11/22/18 04:28 04:28 04:28 WBC 5.9 RBC 4.01 Hgb 11.9 Hct 36.3 MCV 90.4 MCH 29.6 MCHC 32.7 L RDW 15.2 H Plt Count 246 MPV 8.6 Neut % (Auto) 36.6 L Lymph % (Auto) 46.5 H Pacific % (Auto) 10.0 Eos % (Auto) 6.0 H Baso % (Auto) 0.9 Neut # (Auto) 2.2 Lymph # (Auto) 2.7 Pacific # (Auto) 0.6 Eos # (Auto) 0.4 Baso # (Auto) 0.1 PT INR APTT D-Dimer, Quantitative Sodium 141 Potassium 3.8 Chloride 107 Carbon Dioxide 26 Anion Gap 12 BUN 21 H Creatinine 1.0 Est GFR ( Amer) > 60 Est GFR (Non-Af Amer) 57 Random Glucose 92 Hemoglobin A1c Calcium 8.6 Total Bilirubin 0.2 AST 17 ALT 12 Alkaline Phosphatase 46 Total Creatine Kinase < 20 L CK-MB (Mass) < 0.22 Troponin I < 0.0120 Total Protein 6.1 L Albumin 3.3 L Globulin 2.8 Albumin/Globulin Ratio 1.2 Triglycerides 77 Cholesterol 166 LDL Cholesterol Direct 93 HDL Cholesterol 52 Free T4 1.19 TSH 3rd Generation 2.09 Valproic Acid 11/22/18 11/22/18 11/22/18 04:28 04:28 11:14 WBC RBC Hgb Hct MCV MCH MCHC RDW Plt Count MPV Neut % (Auto) Lymph % (Auto) Pacific % (Auto) Eos % (Auto) Baso % (Auto) Neut # (Auto) Lymph # (Auto) Pacific # (Auto) Eos # (Auto) Baso # (Auto) PT INR APTT D-Dimer, Quantitative Sodium Potassium Chloride Carbon Dioxide Anion Gap BUN Creatinine Est GFR ( Amer) Est GFR (Non-Af Amer) Random Glucose Hemoglobin A1c 5.4 Calcium Total Bilirubin AST ALT Alkaline Phosphatase Total Creatine Kinase < 20 L CK-MB (Mass) < 0.22 Troponin I < 0.0120 Total Protein Albumin Globulin Albumin/Globulin Ratio Triglycerides Cholesterol LDL Cholesterol Direct HDL Cholesterol Free T4 TSH 3rd Generation Valproic Acid < 10.0 L Assessment & Plan (1) Depression Status: Chronic Priority: High (2) Chest pain Status: Suspected Comment: With tenderness, No myocardial infarction
[2018-11-23] MEDS ORDERED: Pneumococcal 23-Valent Vaccine IM ONE (10:00)
== END 2018-11-22 13:30 | disposition home or self-care (01) ==
LOC: C.ER 20:28 → C.9E 22:59 → C.6T 23:44
PROVIDERS: ADMIT Emergency Medicine; ATTEND Emergency Medicine
DX: R07.9 Chest pain, unspecified (principal); F41.9 Anxiety disorder, unspecified; F32.9 Major depressive disorder, single episode, unspecified; I10 Essential (primary) hypertension; J44.9 Chronic obstructive pulmonary disease, unspecified; E03.9 Hypothyroidism, unspecified; K21.9 Gastro-esophageal reflux disease without esophagitis; Z86.73 Personal history of transient ischemic attack (TIA), and cerebral infarction without residual deficits; F17.210 Nicotine dependence, cigarettes, uncomplicated
CPT/HCPCS: 36415; 71046; 80053; 80061; 80164; 83036; 84439; 84443; 84484; 85025; 85378; 85610; 85730; 90732; 93005; 96374; 99285; C9113; G0009; G0378; J1644; J1885; J7030

== ENCOUNTER 2018-12-04 21:10 | Inpatient (IN) | payer MEDICARE, MEDICAID ==
[2018-12-04 21:10] VITALS: BMI 29.2
[2018-12-04] MEDS ORDERED: Albuterol-Ipratrop 3 mg / 0.5 (3 ml) UD ONE (21:51)
[2018-12-04] MEDS ORDERED: Albuterol-Ipratrop 3 mg / 0.5 (3 ml) UD IH STA (21:53)
[2018-12-04] MEDS ORDERED: Albuterol 0.083% Inhal Sol (2.5 mg/3 mL) UD IH STA (21:53)
--- NOTE | 2018-12-04 22:41 | C.PDOC ---
History Of Present Illness 58 year old female with Hx of CVA, AK, GERD, and depression presents stating she has been having trouble breathing. Patient was seen a few days ago at [facility], was given Rx for inhaler, steroids, and z pack but did not fill out any of them. She reports feeling persistently SOB, having trouble breathing, and coughing. Patient is also complaining of feeling depressed, requesting to be evaluated by psych. Patient was admitted last month at [place] for psych and had two previous evaluations for chest discomfort for which she was discharged. Denies fever or chills. Time Seen by Provider: 12/04/18 21:43 Chief Complaint (Nursing): Shortness Of Breath History Per: Patient History/Exam Limitations: no limitations Onset/Duration Of Symptoms: Days Current Symptoms Are (Timing): Still Present Associated Symptoms: Other (SOB, cough). denies: Fever, Chills Recent travel outside of the [place]: No Past Medical History Reviewed: Historical Data, Nursing Documentation, Vital Signs Vital Signs: Last Vital Signs Temp 98.4 F 12/04/18 21:16 Pulse 92 H 12/04/18 21:16 Resp 22 12/04/18 21:45 BP 151/92 H 12/04/18 21:16 Pulse Ox 97 12/04/18 21:16 Primary Care Provider: Jos Bray - Medical History PMH: Anxiety, Back Problems, COPD, Depression, Gastrointestinal Ulcer, Gall Bladder Disease, HTN, Hypothyroidism Denies: Diabetes, Hepatitis, HIV, Chronic Kidney Disease, Seizures, Sexually Transmitted Disease Surgical History: Tonsillectomy - [facility] Procedures MEDICATION MANAGEMENT (10/25/18) Family History: States: Unknown Family Hx - Social History Hx Alcohol Use: Yes Hx Substance Use: No - Immunization History Hx Tetanus Toxoid Vaccination: No Hx Influenza Vaccination: No Hx Pneumococcal Vaccination: No Review Of Systems Constitutional: Negative for: Fever, Chills Cardiovascular: Negative for: Chest Pain Respiratory: Positive for: Cough, Shortness of Breath Gastrointestinal: Negative for: Nausea, Vomiting Neurological: Negative for: Weakness, Numbness Psych: Positive for: Depression Physical Exam - Physical Exam Appears: Non-toxic, Other (Speaking in complete sentences) Skin: Normal Color, Warm Head: Atraumatic, Normacephalic Eye(s): bilateral: Normal Inspection Oral Mucosa: Moist Chest: Symmetrical, No Tenderness Cardiovascular: Rhythm Regular Respiratory: No Rales, No Rhonchi, Wheezing (Diffuse mild inspiratory and expiratory) Gastrointestinal/Abdominal: Soft, No Tenderness Neurological/Psych: Oriented x3, Normal Speech ED Course And Treatment - Laboratory Results Result Diagrams: 12/04/18 23:36 12/04/18 23:36 Lab Interpretation: No Acute Changes ECG: Interpreted By Me ECG Rhythm: Sinus Rhythm (Q waves V1-2 c/w old septal infarct.) ECG Interpretation: No Acute Changes O2 Sat by Pulse Oximetry: 97 (Room air) Pulse Ox Interpretation: Normal - Radiology CXR: Interpreted by Me CXR Interpretation: Yes: No Acute Disease Progress Note: EKG, blood work, and CXR ordered. Solumedrol, albuterol, duoneb, and ativan administered. Patient was evaluated by crisis and is medically cleared for a psychiatric admission. Reevaluation Time: 00:15 Reassessment Condition: Improved (No evidence of respiratory distress. Patient lying supine on stretcher. Lungs clear.) Disposition - Disposition Disposition: HOSPITALIZED Disposition Time: 00:16 Condition: IMPROVED - POA Present On Arrival: None - Clinical Impression Clinical Impression: Depression, Anxiety, Acute bronchospasm - Scribe Statement The provider has reviewed the documentation as recorded by the Scribe Adriel Mcfadden All medical record entries made by the Scribe were at my direction and personally dictated by me. I have reviewed the chart and agree that the record accurately reflects my personal performance of the history, physical exam, medical decision making, and the department course for this patient. I have also personally directed, reviewed, and agree with the discharge instructions and disposition.
[2018-12-05 00:08] LABS: BASO # 0.1 K/uL (0.0-0.2); BASO % 0.9 % (0.0-2.0); EOS # 0.4 K/uL (0.0-0.7); EOS % 3.8 % (0.0-4.0); HEMOGLOBIN 12.7 g/dL (11.0-16.0); LYMPH # 1.9 K/uL (1.0-4.3); LYMPH % 17.3 % (20.0-40.0); MEAN CELL VOLUME 88.8 fL (81.0-99.0); MEAN CORPUSCULAR HEMOGLOBIN 29.7 pg (27.0-31.0); MEAN CORPUSCULAR HGB CONC 33.4 g/dL (33.0-37.0); MEAN PLATELET VOLUME 8.6 fL (7.2-11.7); MONO # 0.7 K/uL (0.0-0.8); MONO % 6.3 % (0.0-10.0); NEUT # 7.9 K/uL (1.8-7.0); NEUT % 71.7 % (50.0-75.0); NRBC % 0.1 % (0.0-2.0); RBC 4.3 Mil/uL (3.80-5.20); RED CELL DISTRIBUTION WIDTH 14.9 % (11.5-14.5); WHITE BLOOD COUNT 11.1 K/uL (4.8-10.8)
[2018-12-05 00:16] LABS: B-TYPE NATRIURETIC PEPTIDE 178 pg/mL (0-900)
[2018-12-05 00:35] LABS: ALB/GLOB RATIO 1.3 (1.0-2.1); ALBUMIN 4.4 g/dL (3.5-5.0); ALT/SGPT 20 U/L (9-52); AST/SGOT 35 U/L (14-36); BLOOD UREA NITROGEN 13 mg/dL (7-17); CALCIUM 9.3 mg/dl (8.6-10.4); GFR NON-AFRICAN AMERICAN > 60
[2018-12-05] MEDS ORDERED: Albuterol-Ipratrop 3 mg / 0.5 (3 ml) UD INH PRN (02:27)
--- NOTE | 2018-12-05 02:51 | PCM.BM ---
<Keesha Harrell - Last Filed: 12/05/18 02:48> Treatment Plan Problems - Problems identified on initial assessmt Feeling worthlessness Date Initiated: 12/05/18 Time Initiated: 02:49 Date resolved: 12/05/18 Assessment reference: NA Status: Active Altered Sleep patterns Date Initiated: 12/05/18 Time Initiated: 02:49 Date resolved: 12/05/18 Assessment reference: NA Status: Active Medication nonadherence Date Initiated: 12/05/18 Time Initiated: 02:50 Date resolved: 12/05/18 Assessment reference: NA Treatment assets and liabiliti Patient Assests: cooperative, motivated, ADL independent, negotiates basic needs, cognitively intact, good interpersonal skills Patient Liabilities: live alone (pay for a room in an appt. ), financial problems (pt. lives with limitations.), dietary restrictions (Low salt), medical problems (COPD, Gerd, Asthma, GI ulcer, and hx. of two strokes.) - Milieu Protocol Maintain good personal hygiene: daily Encourage regular showers, daily Remind patient to perform daily oral care, daily Assist patient to perform ADL's Maintain personal safety: every shift Educate patient to report safety concerns to staff, every shift Monitor environment for contraband/sharps Medication safety: Monitor for expected outcome, potential side effects: every shift, Assess barriers to learning: every shift, Assess readiness for medication education: every shift <Jasiel Reece - Last Filed: 12/05/18 10:53> - Diagnosis (1) Depression Status: Chronic Interventions: 12/05/18 10:53 * Assess/adjust medications daily and /or as needed * See patient on an individual basis 7x/week to assess symptoms of depression * Monitor for side effects & effectiveness of medications * (2) Alcohol use disorder Status: Acute Interventions: 12/05/18 10:54 * Assess 7x/week regarding severity of withdrawal * Educate regarding risks, benefits, side effects and alternatives of medications * Use Motivational Interviewing for abstinence * Use CBT for relapse prevention * Medication management for withdrawal symptoms * Encourage medication assisted treatment * <Deanna Calix - Last Filed: 12/05/18 15:49> Family Contact Family involvement: Patient does not wish Family/SO involvement Family contact: Patient declines to allow family contact at present - Goals for Treatment Patient goals for treatment: "I want to got to [facility]." Discharge/Continuing Care - Education Needs Education Needs: Patient Medication, Patient Diagnosis/Disease Process, Patient Coping Skills, Patient Placement options, Patient Community resources - Discharge Discharge Criteria: Free of Suicidal thoughts, Normal sleep pattern, Ability to care for self, Reduction of target symptoms Discharge to:: Home - Treatment Team Participation Discussed with Family/SO: No Was Patient/Family/SO present at Treatment Team Meeting: Yes
[2018-12-05] MEDS: Levothyroxine 50 MCG TAB PO SCH (06:47)
[2018-12-05] MEDS: Albuterol-Ipratrop 3 mg / 0.5 (3 ml) UD INH SCH ×4 (08:20→19:26)
--- NOTE | 2018-12-05 09:39 | RAD ---
Date of service: 12/04/2018 HISTORY: Shortness of breath COMPARISON: 11/21/2018 TECHNIQUE: 1 view obtained. FINDINGS: LUNGS: Bibasilar breast and nipple shadows. Rounded nodular density at the right lung base likely represents nipple shadow. PLEURA: No significant pleural effusion identified, no pneumothorax apparent. CARDIOVASCULAR: No aortic atherosclerotic calcification present. Normal cardiac size. No pulmonary vascular congestion. OSSEOUS STRUCTURES: No significant abnormalities. VISUALIZED UPPER ABDOMEN: Normal. OTHER FINDINGS: None. IMPRESSION: No focal infiltrate or effusion. Bibasilar breast and nipple shadows. Rounded nodular density at the right lung base likely represents nipple shadow.
--- NOTE | 2018-12-05 09:41 | PCM.PSYCH ---
Initial Psychiatric Evaluation - Initial Psychiatric Evaluation Type of Admission: Voluntary Legal Status: Capacity Chief Complaint (in patient's own words): I was feeling increasingly depressed .' History of Present Illness and Precipitating Events: Patient is 58 y/o female who lives with roommate, came to the [facility] with depressed mood, anxiety and passive suicidal ideation. Patient reports history of few inpatient psychiatric hospitalizations. She reports history of follow-up with an unknown psychiatrist. Patient reports that her depression and anxiety is getting increasingly worse. Yesterday she had a verbal altercation with his roommates, she consumed 2-3 shots of liquor, became increasingly depressed and developed passive suicidal ideation so she came to the hospital to get help. She reports depressed mood, feelings of hopelessness and helplessness. She reports anxiety, irritability and agitation. She denies any auditory or visual hallucinations or any paranoia. She reports anxiety and headaches but denies any withdrawal symptoms from drinking. Past Psych. Hx: Depression, ETOH overdose, PTSD PSH: Tonsillectomy ALL: chocolate flavor, peanut PMH: Hypothyroidism, COPD, gastrointestinal ulcer, gall bladder disease, HTN, CVA, ND (5 years ago) Family psych hx: unknown Social hx: drinks ETOH 3-4 shots at dinner daily since 18 years old, no illicit drugs, smokes cigarette Meds: Albuterol 2.5mg INH q6, aspirin 81mg PO qd, Librium 25mg PO q6, Plavix 75mg PO qd, Colace 100mg PO BID, Pepcid 20mg PO BID, levothyroxine 50mcg PO, metoprolol 50mg PO qd, Lyrica 50mg PO BID, Venlafaxine 75mg PO qd. Current Medications: Active Medications Generic Name Dose Route Start Last Admin Trade Name Freq PRN Reason Stop Dose Admin Albuterol Sulfate 2.5 mg 12/05/18 02:19 Albuterol 0.083% Inhal Denise (2.5 Mg/3 Ml) Ud INH RQ4 PRN Wheezing Albuterol/Ipratropium 3 ml 12/05/18 08:00 Duoneb 3 Mg/0.5 Mg (3 Ml) Ud INH RQ6 AMANDA Aspirin 81 mg 12/05/18 10:00 Aspirin Chewable PO DAILY AMANDA Clopidogrel Bisulfate 75 mg 12/05/18 10:00 Plavix PO DAILY [facility] Docusate Sodium 100 mg 12/05/18 10:00 Colace PO BID [facility] Famotidine 20 mg 12/05/18 10:00 Pepcid PO BID [facility] Levothyroxine Sodium 50 mcg 12/05/18 06:30 12/05/18 06:47 Synthroid PO 50 mcg DAILY@0630 [facility] Administration Metoprolol Succinate 50 mg 12/05/18 10:00 Toprol Xl PO DAILY [facility] Pregabalin 50 mg 12/05/18 10:00 Lyrica PO BID [facility] Past Psychiatric History - Past Psychiatric History Previous Treatment History: Inpatient Pertinent Medical Hx (Current Medical&Sleep Prob, Allergies): Allergies Allergy/AdvReac Type Severity Reaction Status Date / Time chocolate flavor Allergy RASH Verified 12/04/18 21:25 peanut Allergy ANGIOEDEMA Verified 12/04/18 21:25 Acetaminophen/Butalbital/Caf [Fioricet] 1 tab PO Q4H PRN #21 tab 10/31/18 LORazepam [Ativan] 1 mg PO BID PRN #30 tab 10/31/18 Zolpidem [Ambien] 5 mg PO HS PRN #14 tab 10/31/18 hydrOXYzine Pamoate [Vistaril] 50 mg PO DAILY PRN #14 cap 10/31/18 Aspirin [Aspirin Chewable] 81 mg PO DAILY #7 chew 11/22/18 Atorvastatin [Lipitor] 10 mg PO DIN #7 tab 11/22/18 Docusate [Colace] 100 mg PO BID #14 cap 11/22/18 Pantoprazole [Protonix EC Tab] 40 mg PO 0600,1600 #14 ect 11/22/18 Pregabalin [Lyrica] 50 mg PO BID #14 cap 11/22/18 Venlafaxine [Effexor XR] 225 mg PO DAILY #45 cer 11/22/18 Clopidogrel [Plavix] 75 mg PO DAILY 12/04/18 Metoprolol Succinate XL [Toprol XL] 50 mg PO DAILY 12/04/18 Review of Systems - Review of Systems All systems: reviewed and no additional remarkable complaints except - Psychiatric Psychiatric: Anxiety, Irritability, Suicidal Ideation Mental Status Examination - Personal Presentation Personal Presentation: Looks stated age - Affect Affect: Constricted, Depressed - Motor Activity Motor Activity: Calm - Reliability in Providing Information Reliability in Providing Information: Good - Speech Speech: Organized - Mood Mood: Depressed, Anxious - Formal Thought Process Formal Thought Process: No Impairment - Obsessions/Compulsions Obsessions: No Compulsions: No - Cognitive Functions Orientation: Person, Place, Situation, Time Sensorium: Alert Attention/Concentration: Attentive Abstract Thinking: [place] Estimate of Intelligence: Below average Judgement: Imparied, as evidence by: Poor judgement, Imparied, as evidence by: Lack of insight into illness - Risk Risk: Suicidal, Withdrawal, Diminished functioning - Limitations Limitations: Living alone DSM 5 DX - DSM 5 DSM 5 Diagnosis: Bipolar depressed severe without psychotic features Alcohol use disorder moderate - Recommended/Plan of Treatment Treatment Recommendations and Plan of Treatment: Bipolar depressed severe without psychotic features Alcohol use disorder moderate HTN Hypothyroidism, COPD, Gastrointestinal ulcer CVA, [place] CBT Supportive therapy and group therapy Psychoeducation Effexor for depression Ambien for insomnia Hydroxyzine for anxiety Librium prn for insomnia Continue meds for HTN/COPD/Hypothyroidism/gastrointestinal ulcer/ - Smoking Cessation Smoking Cessation Initiated: No
[2018-12-05] MEDS: Metoprolol Succinate 50 mg XL Tab PO SCH (10:40)
--- NOTE | 2018-12-05 23:56 | CARD ---
APPROVED REPORT Date of service: 12/04/2018 EKG Measurement Heart [id number] <Conclusion> Normal sinus rhythm Possible Septal infarct, age undetermined Abnormal ECG
[2018-12-06] MEDS: Albuterol 0.083% Inhal Sol (2.5 mg/3 mL) UD INH PRN ×5 (01:56→13:57)
[2018-12-06] MEDS: Albuterol-Ipratrop 3 mg / 0.5 (3 ml) UD INH SCH ×4 (02:29→21:40)
[2018-12-06] MEDS: Levothyroxine 50 MCG TAB PO SCH (06:42)
[2018-12-06 09:01] LABS: HCG,QUALITATIVE URINE NEGATIVE (NEGATIVE)
[2018-12-06 09:05] LABS: SQUAMOUS EPITHIAL 1 /hpf (0-5); URINE BILIRUBIN NEGATIVE (NEGATIVE); URINE BLOOD NEGATIVE (NEGATIVE); URINE CALCIUM OXALATE CRYSTALS MOD /hpf (<OCC); URINE CLARITY Hazy (Clear); URINE COLOR Yellow (YELLOW); URINE GLUCOSE (UA) NORMAL (Normal); URINE PROTEIN NEGATIVE (NEGATIVE); URINE UROBILINOGEN NORMAL mg/dL (0.2-1.0)
[2018-12-06 09:06] LABS: URINE LEUKOCYTE ESTERASE 1+ Leu/uL (Negative)
[2018-12-06 09:36] LABS: BARBITURATES, UR NEGATIVE (NEGATIVE); OPIATES, UR NEGATIVE (NEGATIVE); PHENCYCLIDINE, UR NEGATIVE (NEGATIVE)
[2018-12-06 09:53] LABS: BENZODIAZEPINES, UR POSITIVE (NEGATIVE)
[2018-12-06] MEDS: Metoprolol Succinate 50 mg XL Tab PO SCH (10:30)
--- NOTE | 2018-12-06 15:38 | PCM.PYCHPN ---
Psychiatric Progress Note - Psychiatric Progress Note Patient seen today, length of contact: 15 MIN Patient Chief Complaint: I was feeling increasingly depressed .' Problems Identified/Issues Discussed: Patient was seen and evaluated, chart reviewed and discussed with staff. Patient reports depressed mood and at times feelings of hopelessness and helplessness. She reports at times irritability and agitation. She denies any auditory hallucinations any paranoia. She is taking medication but denies any side effects. Supportive therapy was given Medication Change: Yes Medical Record Reviewed: Yes Mental Status Examination - Cognitive Function Orientation: Person, Place, Situation, Time Memory: Intact Attention: WNL Concentration: Poor Association: WNL Fund of Knowledge: Poor - Mood Mood: Depressed, Anxious - Affect Affect: Constricted, Depressed - Speech Speech: Soft - Formal Thought Process Formal Thought Process: Hallucinations - Suicidal Ideation Suicidal Ideation: No - Homicidal Ideation Homicidal Ideation: No Goal/Treatment Plan - Goal/Treatment Plan Need for Continued Stay: Remain at risks for inpatient hospitalization Progress Toward Problem(s) and Goals/Treatment Plan: Bipolar depressed severe without psychotic features Alcohol use disorder moderate HTN Hypothyroidism, COPD, Gastrointestinal ulcer CVA, [place] CBT Supportive therapy and group therapy Psychoeducation Effexor for depression Ambien for insomnia Hydroxyzine for anxiety Librium prn for insomnia Continue meds for HTN/COPD/Hypothyroidism/gastrointestinal ulcer/
[2018-12-07] MEDS: Albuterol-Ipratrop 3 mg / 0.5 (3 ml) UD INH SCH ×4 (02:23→20:04)
[2018-12-07] MEDS: Levothyroxine 50 MCG TAB PO SCH (05:55)
[2018-12-07] MEDS: Metoprolol Succinate 50 mg XL Tab PO SCH (09:04)
--- NOTE | 2018-12-07 11:15 | PCM.PYCHPN ---
Psychiatric Progress Note - Psychiatric Progress Note Patient seen today, length of contact: 15 MIN Patient Chief Complaint: I was feeling increasingly depressed .' Problems Identified/Issues Discussed: Patient was seen and evaluated, chart reviewed and discussed with staff. Patient reports depressed mood and at times feelings of hopelessness and helplessness. She reports at times irritability and agitation. She denies any auditory hallucinations any paranoia. She is taking medication but denies any side effects. Supportive therapy was given Medication Change: Yes Medical Record Reviewed: Yes Mental Status Examination - Cognitive Function Orientation: Person, Place, Situation, Time Memory: Intact Attention: WNL Concentration: Poor Association: WNL Fund of Knowledge: Poor - Mood Mood: Depressed, Anxious - Affect Affect: Constricted, Depressed - Speech Speech: Soft - Formal Thought Process Formal Thought Process: Hallucinations - Suicidal Ideation Suicidal Ideation: No - Homicidal Ideation Homicidal Ideation: No Goal/Treatment Plan - Goal/Treatment Plan Need for Continued Stay: Remain at risks for inpatient hospitalization Progress Toward Problem(s) and Goals/Treatment Plan: Bipolar depressed severe without psychotic features Alcohol use disorder moderate HTN Hypothyroidism, COPD, Gastrointestinal ulcer CVA, [place] CBT Supportive therapy and group therapy Psychoeducation Effexor for depression Ambien for insomnia Hydroxyzine for anxiety Librium prn for insomnia Continue meds for HTN/COPD/Hypothyroidism/gastrointestinal ulcer/
[2018-12-08] MEDS: Albuterol-Ipratrop 3 mg / 0.5 (3 ml) UD INH SCH ×4 (02:06→20:29)
[2018-12-08] MEDS: Levothyroxine 50 MCG TAB PO SCH (05:53)
[2018-12-08] MEDS: Metoprolol Succinate 50 mg XL Tab PO SCH (09:17)
[2018-12-08] MEDS ORDERED: Pneumococcal 23-Valent Vaccine IM ONE (10:00)
--- NOTE | 2018-12-08 20:01 | PCM.PYCHPN ---
Psychiatric Progress Note - Psychiatric Progress Note Patient seen today, length of contact: 16 MIN Patient Chief Complaint: "I am still feeling anxious" Problems Identified/Issues Discussed: The pt is seen, chart reviewed, case is discussed with staff. The pt is compliant with medications and reports no side-effects. Symptoms are improving but needs more time to stabilize and to avoid relapse. Patient however reports that she still feels anxious and that the dose of PRN is not working as much. Pt attends groups and activities. Support given, psycho-education provided. After care discussed. Medication Change: Yes (Increase Atarax to 50mg PRN anxiety) Medical Record Reviewed: Yes Mental Status Examination - Cognitive Function Orientation: Person, Place, Situation, Time Memory: Intact Attention: WNL Concentration: Poor Association: WNL Fund of Knowledge: Poor - Mood Mood: Depressed, Anxious - Affect Affect: Constricted, Depressed - Speech Speech: Soft - Formal Thought Process Formal Thought Process: Hallucinations - Suicidal Ideation Suicidal Ideation: No - Homicidal Ideation Homicidal Ideation: No Goal/Treatment Plan - Goal/Treatment Plan Need for Continued Stay: Remain at risks for inpatient hospitalization Progress Toward Problem(s) and Goals/Treatment Plan: Continue the rest of the medications Support and psychoeducation daily Attend groups and activities daily Individual therapy After care planning by social media marketing manager and the team - Smoking Cessation Smoking Cessation Initiated: No Reason for not providing: Patient is a non-smoker
[2018-12-09] MEDS: Albuterol-Ipratrop 3 mg / 0.5 (3 ml) UD INH SCH ×7 (01:45→20:14)
[2018-12-09] MEDS: Levothyroxine 50 MCG TAB PO SCH (05:50)
[2018-12-09] MEDS: Metoprolol Succinate 50 mg XL Tab PO SCH (09:15)
[2018-12-10] MEDS: Albuterol-Ipratrop 3 mg / 0.5 (3 ml) UD INH SCH ×4 (01:57→19:54)
[2018-12-10] MEDS: Levothyroxine 50 MCG TAB PO SCH (06:00)
[2018-12-10 06:45] VITALS: RESP 20; O2SAT 96
[2018-12-10] MEDS: Metoprolol Succinate 50 mg XL Tab PO SCH (09:27)
--- NOTE | 2018-12-10 22:49 | PCM.PYCHPN ---
Psychiatric Progress Note - Psychiatric Progress Note Patient seen today, length of contact: 16 MIN Patient Chief Complaint: "I am still feeling anxious" Problems Identified/Issues Discussed: The pt is seen, chart reviewed, case is discussed with staff. Support and psychoeducation given, CBT and PR used briefly The pt is improving slowly but needs more time due to severity of symptoms and relapse risk. No SEs from medications, risks discussed. After care discussed Medication Change: Yes (Increase Atarax to 50mg PRN anxiety) Medical Record Reviewed: Yes Mental Status Examination - Cognitive Function Orientation: Person, Place, Situation, Time Memory: Intact Attention: WNL Concentration: Poor Association: WNL Fund of Knowledge: Poor - Mood Mood: Depressed, Anxious - Affect Affect: Constricted, Depressed - Speech Speech: Soft - Formal Thought Process Formal Thought Process: Hallucinations - Suicidal Ideation Suicidal Ideation: No - Homicidal Ideation Homicidal Ideation: No Goal/Treatment Plan - Goal/Treatment Plan Need for Continued Stay: Remain at risks for inpatient hospitalization Progress Toward Problem(s) and Goals/Treatment Plan: Continue the rest of the medications Support and psychoeducation daily Attend groups and activities daily Individual therapy After care planning by psychiatric social worker and the team
[2018-12-11] MEDS: Albuterol-Ipratrop 3 mg / 0.5 (3 ml) UD INH SCH ×4 (02:58→20:21)
[2018-12-11] MEDS: Levothyroxine 50 MCG TAB PO SCH (06:12)
[2018-12-11] MEDS: Metoprolol Succinate 50 mg XL Tab PO SCH (09:15)
--- NOTE | 2018-12-12 00:10 | CARD ---
APPROVED REPORT Date of service: 12/08/2018 EKG Measurement Heart [id number] <Conclusion> Normal sinus rhythm Septal infarct, age undetermined Abnormal ECG
[2018-12-12] MEDS: Albuterol-Ipratrop 3 mg / 0.5 (3 ml) UD INH SCH ×2 (02:50→08:51)
[2018-12-12] MEDS: Levothyroxine 50 MCG TAB PO SCH (06:03)
[2018-12-12 06:45] VITALS: BP 129/88; PULSE 80; TEMP 97.6
[2018-12-12] MEDS: Metoprolol Succinate 50 mg XL Tab PO SCH (09:34)
--- NOTE | 2018-12-12 10:01 | PCM.PYCHPN ---
Psychiatric Progress Note - Psychiatric Progress Note Patient seen today, length of contact: 16 MIN Patient Chief Complaint: I m feeling much better .' Problems Identified/Issues Discussed: Patient was seen and evaluated, chart reviewed and discussed with staff. Patient reports improvement in the mood and reports improvement in the feelings of hopelessness and helplessness. She denies any auditory hallucinations any paranoia. She is taking medication but denies any side effects. Supportive therapy was given Medication Change: Yes (Increase Atarax to 50mg PRN anxiety) Medical Record Reviewed: Yes Mental Status Examination - Cognitive Function Orientation: Person, Place, Situation, Time Memory: Intact Attention: WNL Concentration: WNL Association: WNL Fund of Knowledge: Poor - Mood Mood: Depressed, Anxious - Affect Affect: Constricted, Depressed - Speech Speech: Soft - Formal Thought Process Formal Thought Process: No Impairment - Suicidal Ideation Suicidal Ideation: No - Homicidal Ideation Homicidal Ideation: No Goal/Treatment Plan - Goal/Treatment Plan Need for Continued Stay: Remain at risks for inpatient hospitalization Progress Toward Problem(s) and Goals/Treatment Plan: Bipolar depressed severe without psychotic features Alcohol use disorder moderate HTN Hypothyroidism, COPD, Gastrointestinal ulcer CVA, [place] CBT Supportive therapy and group therapy Psychoeducation Effexor for depression Ambien for insomnia Hydroxyzine for anxiety Librium prn for insomnia Continue meds for HTN/COPD/Hypothyroidism/gastrointestinal ulcer/
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
== END 2018-12-12 12:56 | disposition home or self-care (01) | DRG 885 ==
LOC: C.ER 21:10 → C.5E 12-05 00:18
PROVIDERS: ADMIT Psychiatry & Neurology Psychiatry; ATTEND Psychiatry & Neurology Psychiatry
PROC: GZ56ZZZ Individual Psychotherapy, Supportive (ICD-10-PCS; principal; 2018-12-05)
DX: F31.4 Bipolar disorder, current episode depressed, severe, without psychotic features (principal); F10.10 Alcohol abuse, uncomplicated; E03.9 Hypothyroidism, unspecified; F43.10 Post-traumatic stress disorder, unspecified; G47.00 Insomnia, unspecified; I10 Essential (primary) hypertension; J44.9 Chronic obstructive pulmonary disease, unspecified; Z86.73 Personal history of transient ischemic attack (TIA), and cerebral infarction without residual deficits; J98.01 Acute bronchospasm; Z87.11 Personal history of peptic ulcer disease

== ENCOUNTER 2018-12-14 00:18 | Emergency (ER) | payer MEDICARE, MEDICAID ==
[2018-12-14 00:18] VITALS: BMI 29.2
[2018-12-14] MEDS ORDERED: Sodium Chloride 0.9% 1,000 ML IV ONE (00:55)
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
[2018-12-14 06:04] VITALS: RESP 20
[2018-12-14 06:58] LABS: BASO # 0.1 K/uL (0.0-0.2); BASO % 0.9 % (0.0-2.0); EOS # 0.2 K/uL (0.0-0.7); EOS % 1.5 % (0.0-4.0); HEMOGLOBIN 13.4 g/dL (11.0-16.0); LYMPH # 2.2 K/uL (1.0-4.3); LYMPH % 19.5 % (20.0-40.0); MEAN CORPUSCULAR HEMOGLOBIN 30.6 pg (27.0-31.0); MEAN CORPUSCULAR HGB CONC 35.1 g/dL (33.0-37.0); MEAN PLATELET VOLUME 8.1 fL (7.2-11.7); MONO # 0.8 K/uL (0.0-0.8); MONO % 7.3 % (0.0-10.0); NEUT # 7.8 K/uL (1.8-7.0); NEUT % 70.8 % (50.0-75.0); RBC 4.39 Mil/uL (3.80-5.20); RED CELL DISTRIBUTION WIDTH 14.9 % (11.5-14.5)
[2018-12-14 07:03] LABS: B-TYPE NATRIURETIC PEPTIDE 68.5 pg/mL (0-900)
[2018-12-14 07:05] LABS: ALB/GLOB RATIO 1.2 (1.0-2.1); ALBUMIN 4.2 g/dL (3.5-5.0); ALT/SGPT 15 U/L (9-52); AST/SGOT 21 U/L (14-36); BLOOD UREA NITROGEN 26 mg/dL (7-17); CALCIUM 9.7 mg/dl (8.6-10.4); GFR NON-AFRICAN AMERICAN > 60; LIPASE 32 U/L (23-300)
[2018-12-14 07:07] LABS: INR 1.1; PARTIAL THROMBOPLASTIN TIME 35.7 SECONDS (21-34); PROTHROMBIN TIME 11.8 SECONDS (9.7-12.2)
[2018-12-14 07:47] LABS: SQUAMOUS EPITHIAL 3 /hpf (0-5); URINE BILIRUBIN NEGATIVE (NEGATIVE); URINE BLOOD NEGATIVE (NEGATIVE); URINE CLARITY Hazy (Clear); URINE COLOR Yellow (YELLOW); URINE GLUCOSE (UA) NORMAL (Normal); URINE LEUKOCYTE ESTERASE TRACE Leu/uL (Negative); URINE PROTEIN NEGATIVE (NEGATIVE); URINE UROBILINOGEN NORMAL mg/dL (0.2-1.0)
[2018-12-14 08:12] LABS: BARBITURATES, UR NEGATIVE (NEGATIVE); OPIATES, UR NEGATIVE (NEGATIVE); PHENCYCLIDINE, UR NEGATIVE (NEGATIVE)
[2018-12-14 09:27] LABS: BENZODIAZEPINES, UR POSITIVE (NEGATIVE)
[2018-12-14 10:23] VITALS: BP 120/82; PULSE 94; TEMP 97.5; O2SAT 99
== END 2018-12-14 13:04 | disposition home or self-care (01) ==
LOC: C.ER 00:18
DX: F41.9 Anxiety disorder, unspecified (principal)
CPT/HCPCS: 80053; 81001; 83690; 83880; 84484; 85025; 85610; 85730; 99285; G0480